=== PATIENT | male | born 1980 | race Two or more races ===

== ENCOUNTER 2018-09-20 21:23 | Emergency (ER) | payer MEDICAID ==
[~2018-09-20] VITALS: Ht 182.9 cm; Wt 119.3 kg
[~2018-09-20 21:23] MED LIST: RANI150C PO
[2018-09-20 21:31] VITALS: BP 147/63
== END 2018-09-20 22:46 | disposition home or self-care (01) ==
LOC: ED 22:40
DX: B34.9 Viral infection, unspecified (principal); K21.9 Gastro-esophageal reflux disease without esophagitis; F12.10 Cannabis abuse, uncomplicated; F41.1 Generalized anxiety disorder; Z88.0 Allergy status to penicillin
CPT/HCPCS: 71046; 99283

== ENCOUNTER 2020-09-02 16:16 | Emergency (ER) | payer MEDICAID ==
--- NOTE | 2020-09-02 16:53 | NUR ---
called x3, nil. as
== END 2020-09-02 16:56 | disposition left against medical advice (07) ==
LOC: ED 16:50
DX: S90.811A Abrasion, right foot, initial encounter (principal); Z53.21 Procedure and treatment not carried out due to patient leaving prior to being seen by health care provider; X58.XXXA Exposure to other specified factors, initial encounter; Y93.89 Activity, other specified; Y92.89 Other specified places as the place of occurrence of the external cause; Y99.8 Other external cause status